=== PATIENT | female | born 1960 | race Caucasian/White ===

== ENCOUNTER 2022-01-10 11:16 | Outpatient (CLI) | payer OTHER | END 2022-01-10 11:17 | disposition home or self-care (01) | LOC: CSHMAMMO 11:16 | PROVIDERS: ATTEND Obstetrics & Gynecology | DX: Z12.31 Encounter for screening mammogram for malignant neoplasm of breast (principal); Z91.89 Other specified personal risk factors, not elsewhere classified; Z80.3 Family history of malignant neoplasm of breast | CPT/HCPCS: 77067 ==

== ENCOUNTER 2023-02-06 12:47 | Outpatient (CLI) | payer OTHER | END 2023-02-06 12:48 | disposition home or self-care (01) | LOC: CSHMAMMO 12:47 | PROVIDERS: ATTEND Obstetrics & Gynecology | DX: N63.10 Unspecified lump in the right breast, unspecified quadrant (principal) | CPT/HCPCS: 77066; G0279 ==

== ENCOUNTER 2025-08-04 12:01 | Outpatient (CLI) | payer OTHER | END 2025-08-04 12:02 | disposition home or self-care (01) | LOC: CSHMAMMO 12:01 | PROVIDERS: ATTEND Specialist | DX: Z12.31 Encounter for screening mammogram for malignant neoplasm of breast (principal); Z80.3 Family history of malignant neoplasm of breast; Z85.3 Personal history of malignant neoplasm of breast; Z90.11 Acquired absence of right breast and nipple; Z91.89 Other specified personal risk factors, not elsewhere classified; Z98.890 Other specified postprocedural states | CPT/HCPCS: 77063; 77067 ==